=== PATIENT | female | born 1940 | race Caucasian/White ===

== ENCOUNTER → 2016-12-31 | Outpatient (CLI) | payer MEDICARE ==
[2016-12-31 11:20] LABS: ALT 31 U/L (9-52); AST 31 U/L (14-36); Cholesterol 193 mg/dL (<200); HDL Cholesterol 86 mg/dL (40-60); Triglycerides 125 mg/dL (<150)
== END | disposition home or self-care (01) ==
LOC: LABWHC1 10:11
PROVIDERS: ATTEND Internal Medicine Cardiovascular Disease
DX: I25.10 Atherosclerotic heart disease of native coronary artery without angina pectoris (principal); E78.5 Hyperlipidemia, unspecified
CPT/HCPCS: 36415; 80061; 84450; 84460

== ENCOUNTER → 2017-06-25 | Outpatient (CLI) | payer MEDICARE ==
--- NOTE | 2017-07-14 10:24 | MM ---
Reason for exam: screening (asymptomatic). Last mammogram was performed 1 year and 3 months ago. History: Patient is postmenopausal and history of other cancer. Taking hormonal contraceptives for 5 years. Took estrogen for 2 years. Took progesterone for 2 years. Physical Findings: A clinical breast exam by your physician is recommended on an annual basis and results should be correlated with mammographic findings. MG 3D Screening Mammo W/Cad Bilateral CC and MLO view(s) were taken. Prior study comparison: March 11, 2016, mammogram, performed at [facility]. March 06, 2015, mammogram, performed at [facility]. The breast tissue is heterogeneously dense. This may lower the sensitivity of mammography. No suspicious abnormality. No significant changes when compared with prior studies. ASSESSMENT: Negative, BI-RAD 1 RECOMMENDATION: Routine screening mammogram of both breasts in 1 year.
== END | disposition home or self-care (01) ==
LOC: RADMAMWWP 10:29
PROVIDERS: ATTEND Obstetrics & Gynecology
DX: Z12.31 Encounter for screening mammogram for malignant neoplasm of breast (principal)
CPT/HCPCS: 77063; G0202

== ENCOUNTER → 2017-07-07 | Outpatient (CLI) | payer MEDICARE ==
[2017-07-07 10:32] LABS: ALT 42 U/L (9-52); AST 32 U/L (14-36); Cholesterol 175 mg/dL (<200); HDL Cholesterol 83 mg/dL (40-60)
== END | disposition home or self-care (01) ==
LOC: LABWHC1 09:32
PROVIDERS: ATTEND Internal Medicine Cardiovascular Disease
DX: E78.5 Hyperlipidemia, unspecified (principal)
CPT/HCPCS: 36415; 80061; 84450; 84460

== ENCOUNTER → 2018-03-02 | Outpatient (CLI) | payer MEDICARE ==
[2018-03-02 10:45] LABS: ALT 32 U/L (9-52); AST 33 U/L (14-36); Albumin 4.1 g/dL (3.5-5.0); Alkaline Phosphatase 47 U/L (38-126); Anion Gap 10 mmol/L; Blood Urea Nitrogen 17 mg/dL (7-17); Calcium 9.2 mg/dL (8.4-10.2); Carbon Dioxide 28 mmol/L (22-30); Chloride 105 mmol/L (98-107); Cholesterol 217 mg/dL (<200); Glucose 92 mg/dL (74-99); HDL Cholesterol 96 mg/dL (40-60); LDL Cholesterol,Calculated 103 mg/dL (0-99); Potassium 4.4 mmol/L (3.5-5.1); Sodium 143 mmol/L (137-145); Total Bilirubin 0.8 mg/dL (0.2-1.3); Total Protein 6.5 g/dL (6.3-8.2); Triglycerides 91 mg/dL (<150)
== END | disposition home or self-care (01) ==
LOC: LABWHC1 09:44
PROVIDERS: ATTEND Internal Medicine Cardiovascular Disease
DX: E78.5 Hyperlipidemia, unspecified (principal); I10 Essential (primary) hypertension
CPT/HCPCS: 36415; 80053; 80061

== ENCOUNTER → 2018-08-05 | Outpatient (CLI) | payer MEDICARE ==
--- NOTE | 2018-08-06 13:23 | MM ---
Reason for exam: screening (asymptomatic). Last mammogram was performed 1 year and 1 month ago. History: Patient is postmenopausal and history of other cancer. Family history of breast cancer in sister. Took hormonal contraceptives for 5 years. Took estrogen for 2 years. Took progesterone for 2 years. Physical Findings: A clinical breast exam by your physician is recommended on an annual basis and results should be correlated with mammographic findings. MG 3D Screening Mammo W/Cad Bilateral CC and MLO view(s) were taken. Prior study comparison: June 25, 2017, bilateral MG 3d screening mammo w/cad. March 11, 2016, mammogram, performed at [facility]. The breast tissue is heterogeneously dense. This may lower the sensitivity of mammography. Focal asymmetry left upper outer quadratt, stable. ASSESSMENT: Benign, BI-RAD 2 RECOMMENDATION: Routine screening mammogram of both breasts in 1 year.
== END | disposition home or self-care (01) ==
LOC: RADMAMWWP 12:50
PROVIDERS: ATTEND Internal Medicine
DX: Z12.31 Encounter for screening mammogram for malignant neoplasm of breast (principal)
CPT/HCPCS: 77063; 77067

== ENCOUNTER → 2018-09-03 | Outpatient (CLI) | payer MEDICARE ==
[2018-09-03 18:47] LABS: LDL Cholesterol,Calculated 74.2 mg/dL (0.0-131.0); VLDL Calculation 19.8 mg/dL (5.00-40.00)
== END | disposition home or self-care (01) ==
LOC: LABWHC1 09:42
PROVIDERS: ATTEND Internal Medicine Cardiovascular Disease
DX: E78.5 Hyperlipidemia, unspecified (principal)
CPT/HCPCS: 36415; 80061; 84450; 84460

== ENCOUNTER → 2019-02-19 | Outpatient (CLI) | payer MEDICARE ==
--- NOTE | 2019-02-19 15:13 | BD ---
EXAMINATION TYPE: Axial Bone Density DATE OF EXAM: 02/19/2019 COMPARISON: 06/14/2016 CLINICAL HISTORY: Height: 61 IN Weight: 136 LBS RISK FACTORS HISTORY OF: Surgery to Hip(right/left): TACHO When: LT 2009 RT 2018 Active: MODERATE Postmenopausal woman: AGE 55 Take estrogen and/or progesterone medications: NOT NOW How long: AGE [age] Lost more than 2 inches in height since high school: YES 3" MEDICATIONS: Osteoporosis Medications:YES Which medication: Fosamax PROLIA How Long: PT GETTING PROLIA INJECTIONS LAST TWO YEARS Additional Medications: PROLIA, VIT D, CALCIUM, MULTI VIT,AMBIEN, CRESTOR, VALTREX, PAXIL, PLACQUINAL EXAM MEASUREMENTS: Bone mineral densitometry was performed using the [employer] System. Bone mineral density as measured about the Lumbar spine is: ----- L1-L4(G/cm2): 1.224 T Score Values are as follows: ----- L2: -0.1 ----- L3: 1.0 ----- L4: 0.7 ----- L1-L4: 0.4 Bone mineral density has: Increased 7.0% since study of: 06/14/2016 TACHO HIP REPLACEMENTS Bone mineral density about the L Wrist (g/cm2): 0.570 T Score values are as follows: -----Dist. R+U: -2.8 -----Prox. R+U: -0.9 -----Radius total: -1.7 Bone mineral density BASELINE IMPRESSION: Osteopenia (T Score between -2.5 and -1). There is slightly increased risk of fracture and the patient may be considered for treatment. Re-Screen 2-5 years. NOTE: T-SCORE=SD OF THE YOUNG ADULT MEAN.
== END | disposition home or self-care (01) ==
LOC: RADBDWWP 14:31
PROVIDERS: ATTEND Internal Medicine Rheumatology
DX: M85.80 Other specified disorders of bone density and structure, unspecified site (principal); M89.9 Disorder of bone, unspecified
CPT/HCPCS: 77080

== ENCOUNTER → 2019-07-15 | Outpatient (CLI) | payer MEDICARE ==
[2019-07-15 16:17] LABS: Chol/HDL Ratio 2.14; LDL Cholesterol,Calculated 74.6 mg/dL (0.0-131.0); VLDL Calculation 22.4 mg/dL (5.00-40.00)
== END | disposition home or self-care (01) ==
LOC: LABWHC1 09:29
PROVIDERS: ATTEND Internal Medicine Cardiovascular Disease
DX: E78.2 Mixed hyperlipidemia (principal)
CPT/HCPCS: 36415; 80061; 82550; 84450; 84460

== ENCOUNTER → 2019-08-18 | Outpatient (CLI) | payer MEDICARE ==
--- NOTE | 2019-08-19 10:58 | MM ---
Reason for exam: screening (asymptomatic). Last mammogram was performed 1 year ago. History: Patient is postmenopausal and has history of other cancer at age 55. Family history of breast cancer in sister. Took hormonal contraceptives for 5 years. Took estrogen for 2 years. Took progesterone for 2 years. Physical Findings: A clinical breast exam by your physician is recommended on an annual basis and results should be correlated with mammographic findings. MG 3D Screening Mammo W/Cad Bilateral CC and MLO view(s) were taken. Prior study comparison: August 05, 2018, bilateral MG 3d screening mammo w/cad. June 25, 2017, bilateral MG 3d screening mammo w/cad. The breast tissue is heterogeneously dense. This may lower the sensitivity of mammography. There is no discrete abnormality. No significant changes when compared with prior studies. ASSESSMENT: Negative, BI-RAD 1 RECOMMENDATION: Routine screening mammogram of both breasts in 1 year.
== END | disposition home or self-care (01) ==
LOC: RADMAMWWP 10:36
PROVIDERS: ATTEND Internal Medicine
DX: Z12.31 Encounter for screening mammogram for malignant neoplasm of breast (principal)
CPT/HCPCS: 77063; 77067

== ENCOUNTER → 2020-10-26 | Outpatient (CLI) | payer MEDICARE ==
--- NOTE | 2020-10-27 13:56 | MM ---
Reason for exam: screening (asymptomatic). Last mammogram was performed 1 year and 2 months ago. History: Patient is postmenopausal and has history of other cancer at age 55. Family history of breast cancer in sister. Took hormonal contraceptives for 5 years. Took estrogen for 2 years. Took progesterone for 2 years. Physical Findings: A clinical breast exam by your physician is recommended on an annual basis and results should be correlated with mammographic findings. MG 3D Screening Mammo W/Cad Bilateral CC and MLO view(s) were taken. XCCL view(s) were taken of the left breast. Prior study comparison: August 18, 2019, bilateral MG 3d screening mammo w/cad. August 05, 2018, bilateral MG 3d screening mammo w/cad. The breast tissue is heterogeneously dense. This may lower the sensitivity of mammography. Finding: There is a new 7 mm obscured oval mass in the outer quadrant, middle position of the right breast on CC 23/51. Asymmetric breast tissue left posterior breast, stable. ASSESSMENT: Incomplete: need additional imaging evaluation, BI-RAD 0 RECOMMENDATION: Special view mammogram of the right breast. If lesion persists on supplemental views, image directed ultrasound is recommended. [facility] will attempt to contact patient to return for supplemental views and ultrasound if indicated.
== END | disposition home or self-care (01) ==
LOC: RADMAMWWP 15:05
PROVIDERS: ATTEND Internal Medicine
DX: Z12.31 Encounter for screening mammogram for malignant neoplasm of breast (principal)
CPT/HCPCS: 77063; 77067

== ENCOUNTER → 2020-11-01 | Outpatient (CLI) | payer MEDICARE ==
--- NOTE | 2020-11-01 14:42 | MM ---
Reason for exam: additional evaluation requested from abnormal screening. Last mammogram was performed less than 1 month ago. History: Patient is postmenopausal and has history of other cancer at age 55. Family history of breast cancer in sister. Took hormonal contraceptives for 5 years. Took estrogen for 2 years. Took progesterone for 2 years. Physical Findings: Nurse did not find any significant physical abnormalities on exam. MG 3D Work Up W/Cad RT Spot compression CC and ML view(s) were taken of the right breast. Prior study comparison: October 26, 2020, bilateral MG 3d screening mammo w/cad. August 18, 2019, bilateral MG 3d screening mammo w/cad. The breast tissue is heterogeneously dense. This may lower the sensitivity of mammography. There is no discrete abnormality right outer CC. These results were verbally communicated with the patient and result sheet given to the patient on 11/01/20. ASSESSMENT: Probably benign, BI-RAD 3 RECOMMENDATION: Follow-up diagnostic mammogram of the right breast in 6 months.
== END | disposition home or self-care (01) ==
LOC: RADMAMWWP 09:26
PROVIDERS: ATTEND Internal Medicine
DX: R92.8 Other abnormal and inconclusive findings on diagnostic imaging of breast (principal)
CPT/HCPCS: 77065; G0279; 77061

== ENCOUNTER → 2021-01-31 | Outpatient (CLI) | payer MEDICARE ==
--- NOTE | 2021-01-31 14:21 | BD ---
EXAMINATION TYPE: Axial Bone Density DATE OF EXAM: 01/31/2021 COMPARISON: NONE CLINICAL HISTORY: Height: 62 Weight: 144.9 FRAX RISK QUESTIONS: Alcohol (3 or more units per day): no Family History (Parent hip fracture): no Glucocorticoids (More than 3mos): no (Ex: prednisone, prednisolone, methylprednisolone, dexamethasone, and hydrocortisone). History of Fracture in Adulthood: yes Secondary Osteoporosis: 1. Type 1 Diabetes: no 2. Hyperthyroidism: no 3. Menopause before 45: no 4. Malnutrition: no 5. Chronic liver disease: no Rheumatoid Arthritis: yes Current Tobacco Use: no RISK FACTORS HISTORY OF: Hip Fracture (Right/Left): right When: 2019 Surgery to Spine/Hip(right/left)/Wrist (right/left): bilateral hips When: - 2009 right- 2019 Family History of Osteoporosis: yes Active: yes Diet low in dairy products/other sources of calcium: no Postmenopausal woman: age 52 Lost more than 2 inches in height since high school: no MEDICATIONS: plaquavil, crestor, valtrex, paxil, ambien Osteoporosis Medications: isaias has 6 shots How Long: has taken some form of osteoporosis meds for over 30 years Additional Medications: Additional History: EXAM MEASUREMENTS: Bone mineral densitometry was performed using the [employer] System. Bone mineral density as measured about the Lumbar spine is: ----- L1-L4(G/cm2): 1.279 T Score Values are as follows: ----- L2: 0.2 ----- L3: 1.3 ----- L4: 1.6 ----- L1-L4: 0.8 Bone mineral density has: increased 5.0 % since study of: 02.19.2019 Bone mineral density about the L Wrist (g/cm2): 0.620 T Score values are as follows: -----Dist. R+U: -2.3 -----Prox. R+U: -0.4 -----Radius total: -0.9 Bone mineral density has: increased 5.1 % since study of: 02.19.2019 IMPRESSION: No evidence for osteoporosis or osteopenia. NOTE: T-SCORE=SD OF THE YOUNG ADULT MEAN.
== END | disposition home or self-care (01) ==
LOC: RADBDWWP 12:39
PROVIDERS: ATTEND Internal Medicine Rheumatology
DX: M85.832 Other specified disorders of bone density and structure, left forearm (principal); Z78.0 Asymptomatic menopausal state
CPT/HCPCS: 77080

== ENCOUNTER → 2021-02-15 | Outpatient (CLI) | payer MEDICARE ==
[2021-02-15 19:03] LABS: Albumin 4.3 g/dL (3.80-4.90); Albumin/Globulin Ratio 2.26 (1.60-3.17); Bilirubin, Conjugated 0.2 mg/dL (0.20-0.40); Bilirubin,Unconjugated 0.7 mg/dL; Chol/HDL Ratio 2.19; Globulin 1.9 g/dL (1.6-3.3); LDL Cholesterol,Calculated 81.2 mg/dL (0.0-131.0); Total Bilirubin 0.9 mg/dL (0.2-1.2); Total Protein 6.2 g/dL (6.2-8.2); VLDL Calculation 19.8 mg/dL (5.00-40.00)
== END | disposition home or self-care (01) ==
LOC: LABWHC1 10:20
PROVIDERS: ATTEND Internal Medicine Cardiovascular Disease
DX: E78.5 Hyperlipidemia, unspecified (principal)
CPT/HCPCS: 36415; 80061; 80076

== ENCOUNTER → 2021-06-07 | Outpatient (CLI) | payer MEDICARE ==
--- NOTE | 2021-06-07 11:50 | MM ---
Reason for exam: follow-up at short interval from prior study. Last mammogram was performed 7 months ago. History: Patient is postmenopausal and has history of other cancer at age 55. Family history of breast cancer in sister at age 77. Took hormonal contraceptives for 5 years. Took estrogen for 2 years. Took progesterone for 2 years. Physical Findings: Nurse did not find any significant physical abnormalities on exam. MG 3D Diag Mammo W/Cad RT CC and MLO view(s) were taken of the right breast. Prior study comparison: November 01, 2020, right breast MG 3d work up w/cad RT. October 26, 2020, bilateral MG 3d screening mammo w/cad. August 18, 2019, bilateral MG 3d screening mammo w/cad. There are scattered fibroglandular densities. The previous central asymmetric density does not persist. Stable upper outer quadrant intramammary node. These results were verbally communicated with the patient and result sheet given to the patient on 06/07/21. ASSESSMENT: Negative, BI-RAD 1 RECOMMENDATION: Return to routine screening mammogram schedule for both breasts. Back on schedule for September 2021.
== END | disposition home or self-care (01) ==
LOC: RADMAMWWP 10:57
PROVIDERS: ATTEND Internal Medicine
DX: N64.89 Other specified disorders of breast (principal); Z78.0 Asymptomatic menopausal state; Z80.3 Family history of malignant neoplasm of breast; Z85.9 Personal history of malignant neoplasm, unspecified
CPT/HCPCS: 77065; G0279; 77061

== ENCOUNTER → 2021-08-15 | Outpatient (CLI) | payer MEDICARE ==
[2021-08-15 10:15] LABS: ALT 24 U/L (4-34); AST 38 U/L (14-36)
[2021-08-15 17:32] LABS: Chol/HDL Ratio 2.36 Ratio; LDL Cholesterol,Calculated 99.7 mg/dL (0.0-131.0); VLDL Calculation 19.62 mg/dL (5.00-40.00)
== END | disposition home or self-care (01) ==
LOC: LABWHC1 09:07
PROVIDERS: ATTEND Internal Medicine Cardiovascular Disease
DX: E78.00 Pure hypercholesterolemia, unspecified (principal)
CPT/HCPCS: 36415; 80061; 84450; 84460

== ENCOUNTER → 2021-11-06 | Outpatient (CLI) | payer MEDICARE ==
--- NOTE | 2021-11-08 10:49 | MM ---
Reason for exam: screening (asymptomatic). Last mammogram was performed 5 months ago. History: Patient is postmenopausal and has history of other cancer at age 55. Family history of breast cancer in sister at age 77. Took hormonal contraceptives for 5 years. Took estrogen for 2 years. Took progesterone for 2 years. Physical Findings: A clinical breast exam by your physician is recommended on an annual basis and results should be correlated with mammographic findings. MG 3D Screening Mammo W/Cad Bilateral CC and MLO view(s) were taken. Prior study comparison: June 07, 2021, right breast MG 3d diag mammo w/cad RT. November 01, 2020, right breast MG 3d work up w/cad RT. There are scattered fibroglandular densities. Asymmetry lateral left CC view is unchanged. No significant changes when compared with prior studies. ASSESSMENT: Benign, BI-RAD 2 RECOMMENDATION: Routine screening mammogram of both breasts in 1 year.
== END | disposition home or self-care (01) ==
LOC: RADMAMWWP 11:30
PROVIDERS: ATTEND Internal Medicine
DX: Z12.31 Encounter for screening mammogram for malignant neoplasm of breast (principal); Z78.0 Asymptomatic menopausal state; Z80.3 Family history of malignant neoplasm of breast
CPT/HCPCS: 77063; 77067

== ENCOUNTER → 2022-02-12 | Outpatient (CLI) | payer MEDICARE ==
[2022-02-12 14:54] LABS: ALT 26 U/L (8-44); AST 35 U/L (13-35); Chol/HDL Ratio 2.47 Ratio; LDL Cholesterol,Calculated 90.7 mg/dL (0.0-131.0); VLDL Calculation 18.76 mg/dL (5.00-40.00)
== END | disposition home or self-care (01) ==
LOC: LABWHC1 09:04
PROVIDERS: ATTEND Internal Medicine Cardiovascular Disease
DX: E78.5 Hyperlipidemia, unspecified (principal)
CPT/HCPCS: 36415; 80061; 84450; 84460

== ENCOUNTER → 2022-07-29 | Outpatient (CLI) | payer MEDICARE ==
[2022-07-29 18:13] LABS: ALT 22 U/L (8-44); AST 33 U/L (13-35); Chol/HDL Ratio 2.28 Ratio; LDL Cholesterol,Calculated 88.8 mg/dL (0.0-131.0)
== END | disposition home or self-care (01) ==
LOC: LABWHC1 10:37
PROVIDERS: ATTEND Internal Medicine Interventional Cardiology
DX: E78.2 Mixed hyperlipidemia (principal)
CPT/HCPCS: 36415; 80061; 84450; 84460

== ENCOUNTER → 2023-02-06 | Outpatient (CLI) | payer MEDICARE ==
[2023-02-06 16:23] LABS: ALT 28 U/L (8-44); AST 35 U/L (13-35); Chol/HDL Ratio 2.13 Ratio
== END | disposition home or self-care (01) ==
LOC: LABWHC1 09:49
PROVIDERS: ATTEND Internal Medicine Interventional Cardiology
DX: E78.2 Mixed hyperlipidemia (principal)
CPT/HCPCS: 36415; 80061; 84450; 84460

== ENCOUNTER → 2023-02-28 | Outpatient (CLI) | payer MEDICARE ==
--- NOTE | 2023-02-28 12:16 | BD ---
EXAMINATION TYPE: Axial Bone Density DATE OF EXAM: 02/28/2023 CLINICAL HISTORY: 83 years old Female. ICD-10 CODE: M81.0 AGE RELATED OSTEO Comparison: Prior DEXA studies 2020 and 2018 Height: 61.5in Weight: 136lb FRAX RISK QUESTIONS: Glucocorticoids (More than 3mos): steroid cream (Ex: prednisone, prednisolone, methylprednisolone, dexamethasone, and hydrocortisone). History of Fracture in Adulthood: yes Secondary Osteoporosis: Rheumatoid Arthritis: unsure RISK FACTORS HISTORY OF: Hip Fracture (Right/Left): right When: 2019 Surgery to Spine/Hip(right/left)/Wrist (right/left): yunier hip replacements When: 2018 Family History of Osteoporosis: yes Active: yes Postmenopausal woman: yes Take estrogen and/or progesterone medications: yes, none current How long: about 1 year Lost more than 2 inches in height since high school: yes MEDICATIONS: Osteoporosis Medications: Which medication: Fosamax Prolia How Long: Several treatments off and on over past 35 years Additional Medications: calcium, vitamin d, cholesterol med Additional History: uterine cancer, pt was informed she may have had a lumbar fx from many years ago EXAM MEASUREMENTS: Bone mineral densitometry was performed using the [employer] System. Bone mineral density as measured about the Lumbar spine is: ----- L1-L4(G/cm2): 1.149 T Score Values are as follows: ----- L1: -1.2 ----- L2: -0.9 ----- L3: 0.0 ----- L4: 0.4 ----- L1-L4: -0.3 Z Score Values are as follows: ----- L1: 0.8 ----- L2: 1.0 ----- L3: 2.0 ----- L4: 2.4 ----- L1-L4: 1.7 Bone mineral density has: Decreased -10.2% since study of: 01-31-21 Bone mineral density about the L Wrist (g/cm2): 0.573 T Score values are as follows: -----Dist. R+U: -2.7 -----Prox. R+U: -0.9 -----Radius total: -1.7 Z Score values are as follows: -----Dist. R+U: 0.1 -----Prox. R+U: 1.9 -----Radius total: 1.1 Bone mineral density has: Decreased -4.9% since study of: 01-31-21 IMPRESSION: Normal (Values between +1 and -1 indicate normal bone mass). Consider repeating this study in 5 year s or sooner if there is some new clinical indication. NOTE: T-SCORE=SD OF THE YOUNG ADULT MEAN.
== END | disposition home or self-care (01) ==
LOC: RADBDWWP 10:33
PROVIDERS: ATTEND Internal Medicine Rheumatology
DX: M81.0 Age-related osteoporosis without current pathological fracture (principal); M85.89 Other specified disorders of bone density and structure, multiple sites
CPT/HCPCS: 77080

== ENCOUNTER → 2023-06-11 | Outpatient (CLI) | payer MEDICARE ==
[2023-06-11 16:08] LABS: African American GFR (CKD) 80 (>60 ml/min/1.73 sqM); Blood Urea Nitrogen 28 mg/dL (7-17); Non-African American GFR(CKD) 70 (>60 ml/min/1.73 sqM)
--- NOTE | 2023-06-12 09:39 | CT ---
EXAMINATION TYPE: CT chest w con CT DLP: 204.6 mGycm, Automated exposure control for dose reduction was used. DATE OF EXAM: 06/11/2023 8:28 PM COMPARISON: None CLINICAL INDICATION:Female, 83 years old with history of R06.02 shortness of breath; PHH, SOB, hoarse ness. TECHNIQUE: Multiple axial images were obtained through the chest. Sagittal and coronal reformats were created for review. Contrast used:100 ml mL of Isovue 300 with IV Contrast (None if empty) Oral contrast used: (None if empty) FINDINGS: LUNGS/ PLEURA: Mild centrilobular emphysema changes. No focal consolidation, pneumothorax or pleural effusion. No evidence for suspicious pulmonary nodule. Streaky atelectasis/scarring is present in the lung bases. AIRWAY: Patent and unremarkable. HEART: Size within normal limits. MEDIASTINUM: No gross evidence of adenopathy. VASCULATURE: No aortic aneurysm. No evidence for intimal flap to suggest dissection. No aneurysmal d ilation. No filling defect to suggest pulmonary embolus. MUSCULOSKELETAL: Multilevel disc degeneration changes throughout the spine. There is which compressio n deformities of T6 and T8 with near complete height loss anteriorly. There is mild retropulsion at t he inferior endplate of T6 up to 4 mm. SOFT TISSUES/LYMPH NODES: Unremarkable. LOWER NECK: No significant findings. UPPER ABDOMEN: No significant findings. IMPRESSION: 1. No Evidence for mass or lymphadenopathy. The mediastinum is clear. 2. T6 and T8 compression deformities with near complete height loss anteriorly. Correlate with back pain for acute fractures. Mild spinal canal stenosis at T6 inferior endplate due to retropulsion. 3. Mild to moderate emphysema changes.
== END | disposition home or self-care (01) ==
LOC: RADCTMAIN 15:11
PROVIDERS: ATTEND Internal Medicine
DX: J43.2 Centrilobular emphysema (principal); R06.02 Shortness of breath; M48.54XA Collapsed vertebra, not elsewhere classified, thoracic region, initial encounter for fracture; M48.04 Spinal stenosis, thoracic region
CPT/HCPCS: 82565; 84520; 71260; 36415; Q9967

== ENCOUNTER → 2023-07-02 | Outpatient (CLI) | payer MEDICARE ==
[2023-07-02 16:26] LABS: ALT 33 U/L (8-44); AST 35 U/L (13-35); Chol/HDL Ratio 2.47 Ratio; LDL Cholesterol,Calculated 84.7 mg/dL (0.0-131.0)
== END | disposition home or self-care (01) ==
LOC: LABWHC1 09:31
PROVIDERS: ATTEND Internal Medicine Interventional Cardiology
DX: E78.2 Mixed hyperlipidemia (principal)
CPT/HCPCS: 36415; 80061; 84450; 84460

== ENCOUNTER → 2023-11-10 | Outpatient (CLI) | payer MEDICARE ==
--- NOTE | 2023-11-11 09:28 | MM ---
Reason for Exam: Screening (asymptomatic). Last screening mammogram was performed 12 month(s) ago. Patient History: Menarche at age 13. First Full-Term at age 26. Left ovary removed at age 55. Right ovary removed at age 55. Hysterectomy at age 55. Postmenopausal. Patient used Estrogen for 2 years. Patient used Progesterone for 2 years. Patient used Hormonal Contraceptives for 5 years. Sister had breast cancer, age 77. Risk Values: Mariah 5 year model risk: 3.4%. NCI Lifetime model risk: 4.9%. Prior Study Comparison: 06/07/2021 Right Diagnostic Mammogram, [facility]. 11/06/2021 Bilateral Screening Mammogram, [facility]. 11/07/2022 Bilateral MG 3D screening mammo w/cad, [facility]. Tissue Density: The breast tissue is heterogeneously dense. This may lower the sensitivity of mammography. Findings: Analyzed By CAD. There is no suspicious group of microcalcifications or new suspicious mass. Overall Assessment: Negative, BI-RAD 1 Management: Screening Mammogram of both breasts in [address] [facility] will attempt to contact patient to return for supplemental views and ultrasound if indicated. Patient should continue monthly self-breast exams. A clinical breast exam by your physician is recommended on an annual basis. This exam should not preclude additional follow-up of suspicious palpable abnormalities. Note on Mariah scores and lifetime risk: 1. A Mariah score greater than 3% is considered moderate risk. If this is the case, consider specialist referral to assess eligibility for a risk reducing agent. 2. If overall lifetime risk for the development of breast cancer is 20% or higher, the patient may qualify for future screening with alternating mammogram and breast MRI. Electronically signed and approved by: Lorne Márquez DO
== END | disposition home or self-care (01) ==
LOC: RADMAMWWP 13:01
PROVIDERS: ATTEND Internal Medicine
DX: Z12.31 Encounter for screening mammogram for malignant neoplasm of breast (principal); Z78.0 Asymptomatic menopausal state; Z80.3 Family history of malignant neoplasm of breast
CPT/HCPCS: 77063; 77067